=== PATIENT | male | born 1990 | race African-American/Black ===

== ENCOUNTER 2018-07-13 21:13 | Emergency (ER) | payer MEDICAID ==
[~2018-07-13] VITALS: Ht 170.2 cm; Wt 77.1 kg
[2018-07-13 21:18] VITALS: Ht 170.2 cm; Wt 77.1 kg
[2018-07-13 22:28] LABS: BASOPHIL % 0.8 % (0-2); RED CELL DISTRIBUTION WIDTH 14.5 % (11.5-14.5)
[2018-07-13 22:32] LABS: PLATELET COUNT 549 x10^3mcL (130-400)
[2018-07-13 22:36] LABS: CALCIUM 9.4 mg/dL (8.5-10.1); CARBON DIOXIDE 22.8 mmol/L (21-32); CHLORIDE SERUM 99 mmol/L (98-107); CREATININE SERUM 0.8 mg/dL (0.7-1.3); GFR1 > 60 mL/min; GLUCOSE SERUM 92 mg/dL (74-106); POTASSIUM SERUM 3.2 mmol/L (3.5-5.1); SODIUM SERUM 138 mmol/L (136-145)
[2018-07-13 22:41] LABS: ALBUMIN 3.6 g/dL (3.4-5.0); ALKALINE PHOSPHATASE 76 U/L (46-116); ALT/SGPT 91 U/L (16-63); AST/SGOT 66 U/L (15-37); BILIRUBIN TOTAL 0.61 mg/dL (0.20-1.00); TOTAL PROTEIN, SERUM 8.3 g/dL (6.4-8.2)
[2018-07-14 02:39] VITALS: BP 129/73
== END 2018-07-14 02:40 | disposition home or self-care (01) ==
LOC: ED 21:13 → EDBD 21:13 → ED 07-14 02:40
PROVIDERS: Emergency Medicine
DX: F10.239 Alcohol dependence with withdrawal, unspecified (principal); R56.9 Unspecified convulsions; M79.672 Pain in left foot; Y90.0 Blood alcohol level of less than 20 mg/100 ml
CPT/HCPCS: G0480; J2060; J3411; J3475; J3490; J7030

== ENCOUNTER 2018-10-21 19:00 | Inpatient (IN) | payer OTHER ==
[~2018-10-21] VITALS: Ht 170.2 cm; Wt 71.7 kg
--- NOTE | 2018-10-21 19:57 | NUR ---
PT BIBA, PER MEDIC FAMILY CALLED 911 BECAUSE PT WAS ALTERED. FAMILY REPORTED TO MEDIC THAT PT WAS IN ALCOHOL WITHDRAWL, LAST TIME PT HAD ALCOHOL WAS TODAY OF UNKNOWN AMOUNT. PT IS AAOX3 TO PT UNAWARE OF SITAUTION. PT HAS INTERMITTEN CONFUSION. PT SPEAKING LOW VOLUME AND INCOMPRENSIBLE. PER MEDIC FAMILY WAS ON THE WAY.
[2018-10-21 20:01] LABS: BASOPHIL % 0.3 % (0-2)
[2018-10-21 20:07] LABS: PLATELET COUNT 92 x10^3mcL (130-400); RED CELL DISTRIBUTION WIDTH 17.5 % (11.5-14.5)
[2018-10-21 20:22] LABS: CALCIUM 10.4 mg/dL (8.5-10.1); CARBON DIOXIDE 12.5 mmol/L (21-32); CHLORIDE SERUM 94 mmol/L (98-107); CREATININE SERUM 0.5 mg/dL (0.7-1.3); GFR1 > 60 mL/min; GLUCOSE SERUM 64 mg/dL (74-106); POTASSIUM SERUM 3.1 mmol/L (3.5-5.1); SODIUM SERUM 136 mmol/L (136-145)
[2018-10-21 20:27] LABS: ALBUMIN 4.3 g/dL (3.4-5.0); ALKALINE PHOSPHATASE 99 U/L (46-116); ALT/SGPT 95 U/L (16-63); AST/SGOT 321 U/L (15-37); BILIRUBIN TOTAL 2.86 mg/dL (0.20-1.00)
[2018-10-21 20:33] LABS: CHOLESTEROL 235 mg/dL (<200); TOTAL PROTEIN, SERUM 8.9 g/dL (6.4-8.2)
[2018-10-21 20:38] LABS: AMPHETAMINE QUAL UR NONE DETECTED (See below)
--- NOTE | 2018-10-21 20:40 | NUR ---
PT SITTING UP IN BED, SLEEPING. PT EASILY AROUSABLE. PT URINATED ON HIMSELF. PT PROVIDED WITH PERICARE AND LINEN CHANGE. PT STATES "I WAS WET, THIS FEELS BETTER". PT AWARE OF NAME, BIRTHDATE AND STATES HES AWARE HES "AT [facility]". BUT THEN STATES "DONT LET THEM STEAL FROM ME" WHEN ASKED WHO PT WAS REFERRING TO HE STATED "THEIR IN MY KITCHEN." PT REORIENTED TO PLACE AND SITUATION.
--- NOTE | 2018-10-21 22:13 | NUR ---
PT SITTING UP IN BED, PT REPORTS HAVING TO URINATE. URINAL PROVIDED. PT STATES "I FEEL SO MUCH BETTER, I THINK I CAN GO OUTSIDE NOW". PT NOTED TO BE TALKING TO HIMSELF AND STATING "HELLO, WHO IS PICKING ME UP? WHAT ABOUT JAVEIR" PT ASKED IF HE KNEW WHERE HE WAS HE STATED "[facility]". WHEN ASKED WHO HE WAS TALKING TO PT STATED "[facility]".
--- NOTE | 2018-10-21 23:00 | NUR ---
PT TAKEN TO CT VIA RALISSA.
--- NOTE | 2018-10-21 23:07 | NUR ---
PT RETURNED FROM CT WITH NO S/S OF DISTRESS.
--- NOTE | 2018-10-21 23:25 | NUR ---
REPORT GIVEN TO ALESSANDRO LAUREN TO ASSUME CARE OF PT.
--- NOTE | 2018-10-21 23:29 | NUR ---
RECEIVED PT FROM ED VIA GUERNEY, CAME IN DUE TO ALCOHOL WITHDRAWAL. PT IS AWAKE, CONFUSED, DISORIENTED. ABLE TO FOLLOW SOME SIMPLE COMMANDS. SPEECH IS SLOW. NO SOB NOTED, LUNG SOUNDS CTA. NO S/S OF CHEST PAIN/PRESSURE, SINUS TACHYCARDIA ON THE MONITOR, HR AT 113. NO S/S OF ABDOMINAL DISCOMFORT. NOTED PT HAS A SCAB ON THE LEFT KNEE. PT BECOMES COMBATIVE WHEN TOUCHED AND ATTEMPTS TO GET OUT OF BED. PT IS HALLUCINATING. PT KEPT ON VERBALIZING FOR A MEDICATION TECH. PT'S FATHER AT BEDSIDE. PADDED SIDE RAILS UPX2. CALL LIGHT ON REACH. HOB ELEVATED AT 30 DEG. PT REFUSES FULL SKIN ASSESSMENT. PT IS UNCOOPERATIVE TO CARE. PT'S FATHER AT BEDSIDE AND STATED THAT PT WAS RECENTLY IN [place] FOR ALCOHOLISM. PRIMARY NURSE RADHA AT BEDSIDE FOR CONTINUITY OF CARE
[2018-10-21 23:33] LABS: MAGNESIUM 1.8 mg/dL (1.8-2.4); PHOSPHOROUS 1.5 mg/dL (2.5-4.9)
[2018-10-21 23:36] LABS: CHOLESTEROL/HDL RATIO 2.8
[2018-10-21 23:58] VITALS: BP 151/117
[2018-10-22 00:08] VITALS: Ht 170.2 cm; Wt 71.7 kg
--- NOTE | 2018-10-22 00:43 | NUR ---
DR HENNESSY MAD AWARE ABOUT PATIENT PHOS LEVEL BEING 1.5 STATED WILL ORDER A PHOS LEVEL AND AM AND WILL DECIDE THEN. ALSO INFORMED MD THAT PATIENT BS WAS 64 ON ADMIT IF SHE WANTS TO ORDER FLUIDS WITH DEXTROSE OR ORDER ACCU CHECKS TO MONITOR LEVEL AND SHE STATED WE WILL CHECK. WILL CONTINUE TO FOLLOW.
--- NOTE | 2018-10-22 01:21 | NUR ---
PT RESTING AT THIS TIME,PT INCHORENTLY RUMBLE AND TRY TO GET OOB,STARTED THE BANANA BAG ON THE PATIENT,FOLIC ACID 1 MG IV GIVEN,THIAMINE 100MG IM GIVEN ORDER TO THE LT HIGH,MVI 10 ML ADDED TO THE N/S FLUID 1000ML AND INFUSING AT 250 ML ORDER.
--- NOTE | 2018-10-22 01:31 | NUR ---
PT STILL RUMBLE SNO SLEEPING WAS GIVEN 2 MG ATIVAN IV GIVEN ORDER AND WILL CONTINUE TO MONITOR.
--- NOTE | 2018-10-22 02:23 | NUR ---
SEEN ORDER FOR K PHOS FOR PHOS LEVEL OF 1.5.WILL F/U WITH ASSIGNED NURSE RADHA.
[2018-10-22 06:02] VITALS: BP 143/101
--- NOTE | 2018-10-22 06:36 | NUR ---
PT HAD A RESTING ON AND OFF,IV INFUSING WELL WITH THE SITE PATENT AND INTACT,KEPT CLEAN AND DRY TO TOUCH AT THIS TIME,
[2018-10-22 06:39] LABS: BILIRUBIN DIRECT 1.33 mg/dL (0.0-0.2); BILIRUBIN TOTAL 2.62 mg/dL (0.20-1.00); CALCIUM 8.5 mg/dL (8.5-10.1); CHLORIDE SERUM 101 mmol/L (98-107); CREATININE SERUM 0.6 mg/dL (0.7-1.3); GFR1 > 60 mL/min; GLUCOSE SERUM 60 mg/dL (74-106); POTASSIUM SERUM 3.4 mmol/L (3.5-5.1); SODIUM SERUM 139 mmol/L (136-145)
[2018-10-22 06:40] LABS: AMYLASE 233 U/L (25-115)
[2018-10-22 06:42] LABS: CARBON DIOXIDE 9.6 mmol/L (21-32)
--- NOTE | 2018-10-22 06:45 | NUR ---
MADE DR HENNESSY AWARE OF PATIENT BP 143/101,CO2 9.6 AND K+ 3.4,PT STILL CONFUSED AND TRYING TO GET OOB,MADE COMFORTABLE IN BED AND WILL CONTINUE TO MONITOR.
[2018-10-22 06:49] LABS: BASOPHIL % 0.6 % (0-2)
[2018-10-22 07:14] LABS: PLATELET COUNT 91 x10^3mcL (130-400); RED CELL DISTRIBUTION WIDTH 17.7 % (11.5-14.5)
[2018-10-22 07:30] LABS: LIPASE 3693 IU/L (73-393)
--- NOTE | 2018-10-22 07:35 | NUR ---
PT LETHARGIC, RESPONDS TO TACTILE STIMULI, FOLLOWS COMMANDS AND OPENS EYES SPONT. SPEECH GARBLED. NO FACIAL DROOP. MILD TREMORS NOTED TO HANDS. RA. CHEST EXPANSION SYMM. NO COUGH NOTED. NO N/V/D. SITTER AT BEDSIDE. RIGHT HAND PERIPHERAL IV SITE WNL AND DRESSING CDI. NS INFUSING @ 100 ML/HR. NO S/SX OF ACUTE DISTRESS. WILL CONTINUE TO MONITOR.
--- NOTE | 2018-10-22 08:09 | NUR ---
PT ATTEMPTING TO BITE AT IV SITES. EDUCATED NOT TO. AUTOMOTIVE PROFESSIONAL AT BEDSIDE. WILL ATTEMPT ABDOMINAL EXAM.
[2018-10-22 08:25] VITALS: BP 138/83
--- NOTE | 2018-10-22 08:32 | NUR ---
US ABDOMEN COMPLETE
--- NOTE | 2018-10-22 10:04 | NUR ---
PT ABLE TO SWALLOW SMALLER PILLOWS. PT THREW UP POTASSIUM PILLS. DR. BENSON MADE AWARE
--- NOTE | 2018-10-22 10:09 | NUR ---
PT'S HANDS NOTED TO HAVE HAND TREMORS, AAOX1. SPEECH SLURRED. WILL MEDICATE PER EMAR
--- NOTE | 2018-10-22 10:53 | NUR ---
RIGHT HAND PERIPHERAL IV CATHETER NOTED TO BE OUT. TIP INTACT. SITE WNL. RAC 22G PERIPHERAL IV INITIATED. FLUSHED WITH 10 ML NS. NO S/SX OF INFILTRATION
[2018-10-22 13:30] VITALS: BP 130/99
--- NOTE | 2018-10-22 15:28 | NUR ---
RECEIVED PT IN BED. RESP EQUAL AND UNLABORED. PT IS AROUSABLE TO COMMAND AND TOUCH, DISORIENTED AND CONFUSED. SZ PRECAUTIONS IN PLACE. WILL CONTINUE TO MONITOR
[2018-10-22 16:25] VITALS: BP 135/97
[2018-10-22 17:22] LABS: BASOPHIL % 0.6 % (0-2)
[2018-10-22 17:23] LABS: CALCIUM 8.3 mg/dL (8.5-10.1); CARBON DIOXIDE 10.2 mmol/L (21-32); CHLORIDE SERUM 100 mmol/L (98-107); CREATININE SERUM 0.6 mg/dL (0.7-1.3); GFR1 > 60 mL/min; GLUCOSE SERUM 73 mg/dL (74-106); POTASSIUM SERUM 3.4 mmol/L (3.5-5.1); SODIUM SERUM 134 mmol/L (136-145)
[2018-10-22 17:28] LABS: PLATELET COUNT 109 x10^3mcL (130-400); RED CELL DISTRIBUTION WIDTH 17.7 % (11.5-14.5)
--- NOTE | 2018-10-22 18:15 | NUR ---
CALLED AND SPOKE TO (RESIDENT) ASSIGNED TO THIS PT AND MADE HIM AWARE OF CO2-10.2, NEW ORDER RECEIVED, PLS SEE CPOE, IVF OF D5 1/2NS WITH SODIUM BICARBONATE. SURU RN ASSIGNED TO THIS PT MADE AWARE OF ABOVE. WILL ENDORSED TO NEXT CHARGE NURSE.
--- NOTE | 2018-10-22 18:38 | NUR ---
PT IN BED WITH EYES CLOSED. RESP EQUAL AND UNLABORED, NO DISTRESS NOTED. WILL ENDOSE TO ONCOMING SHIFT
--- NOTE | 2018-10-22 19:50 | NUR ---
TELE#26 ST, [id number], RHYTHM REGULAR.
--- NOTE | 2018-10-22 19:50 | NUR ---
PATIENT RECEIVED IN BED WITH EYES CLOSED, BRIEFLY AWAKEN VERBALLY WHEN NAME CALLED THEN GOES BACK TO SLEEP, MUMBLING INCOMPREHENSIBLE WORDS, SPEECH GARBLED, APPEARED DROWSY. BREATHING EVEN AND UNLABORED BS CLEAR DIMINISHED BASES, FOUND ON ROOM AIR SAT 99%. INCONTINENT OF URINE AND STOOL, KEPT CLEANED AND DRY AT ALL TIMES, PATIENT WITH SITTER AT BEDSIDE TO ASSIST WITH ADL'S AND FOR SAFETY. IV SITE TO RT AC PATENT AND INTACT, INSERTED ANOTHER TO LEFT FOREARM.PATIENT ABLE TO FOLLOW SIMPLE COMMAND. NO SZ ACTIVITY THIS TIME, PADDED RAILS IN PLACED, HOB AT SEMI FOWLERS POSITION. GENERALIZED WEAKNESS, NEED MAX ASSIST WITH ADL'S, NEEDS ANTICIPATED. SAFETY/FALL/SZ PRECAUTIONS MAINTAINED AND OBSERVED. WILL CONTINUE TO MONITOR.
[2018-10-22 20:00] VITALS: BP 136/82
--- NOTE | 2018-10-22 20:50 | NUR ---
NEW IVF ORDER OF D51/2NS WITH 1 AMP BICARB HANGED THIS TIME, REGULATED ON A PUMP AT A RATE OF 100ML/HR.
--- NOTE | 2018-10-22 23:21 | NUR ---
MORE ALERT AND FOLLOWING DIRECTIONS,LIBRIUM ORALL PER ROUTINE ORDERED ADMINISTERED BY ANOTHER NURSE THIS TIME, PATIENT WAS INFORMED ABOUT MEDS ACTIONS AND PURPOSE PRIOR. PLACED HOB UP, TOOK PILLS WELL NO DIFF SWALLOWING NOTED. NO COMPLAINTS MADE. COOPERATIVE AND CALM. SFETY MAINTAINED. WILL CONTINUE TO MONITOR.
--- NOTE | 2018-10-23 00:26 | NUR ---
PATIENT AWAKE, TRYING TO GET OOB AND ATTEMPTING TO PULL IV HEPLOCK RT AC AND IV TO LEFT FOREARM, CONFUSED AND DISORIENTED TO PLACED AND CONFUSED ABOUT PURPOSE OF ADMISSION TO THE HOSP. RE-ORIENTED. WILL MEDICATE PRN.
--- NOTE | 2018-10-23 02:35 | NUR ---
PATIENT AWAKE, BUT CALM THIS TIME. WILL CONITNUE TO MONITOR.
[2018-10-23 05:25] VITALS: BP 132/88
--- NOTE | 2018-10-23 05:35 | NUR ---
SCHEDULED MEDS ADMINISTERED ORALLY, PATIENT AWAKEN AND FOLLOWS DIRECTIONS, INFORMED ABOUT PURPOSE AND ACTION OF MEDS PRIOR. PLACED IN A SITTING POSITION. TOOK PILLS WELL.
--- NOTE | 2018-10-23 06:23 | NUR ---
PATIENT BEEN SLEEPING, DROWSY BUT AROUSABLE VERBALLY HAD X1 EPISODE OF AGITATION AND ANXIETY, REMAINED CONFUSED AND DISORIENTED, RE-ORIENTED. IV SITE TO LEFT AC PATENT AND INTACT, HEPLOCK TO RAC PATENT AND INTACT. WAS INCONITNENT OF UA AND STOOL DURING THE SHIFT, KEPT CLEAN AND DRY.SEMIFOWLERS POSITION. NO SEIZURE ACTIVITY ENCOUNTERED. SITTER AT BEDSIDE DURING THE ENTIRE SHIFT FOR PATIENT SAFETY AND ASSISTANCE WITH ADL'S. WILL ENDORSE CONTINUITY OF CARE TO INCOMING NURSE.
[2018-10-23 06:42] LABS: CALCIUM 9.3 mg/dL (8.5-10.1); CARBON DIOXIDE 14.3 mmol/L (21-32); CHLORIDE SERUM 99 mmol/L (98-107); CREATININE SERUM 0.6 mg/dL (0.7-1.3); GFR1 > 60 mL/min; GLUCOSE SERUM 81 mg/dL (74-106); MAGNESIUM 1.9 mg/dL (1.8-2.4); PHOSPHOROUS 1.4 mg/dL (2.5-4.9); SODIUM SERUM 135 mmol/L (136-145)
--- NOTE | 2018-10-23 06:48 | NUR ---
LAB CLALED RE-POTAASIUM LEVEL OF 2.8,PRIMARY RN MADE AWARE OF RESULT.
[2018-10-23 06:49] LABS: PLATELET COUNT 140 x10^3mcL (130-400); POTASSIUM SERUM 2.8 mmol/L (3.5-5.1)
--- NOTE | 2018-10-23 07:10 | NUR ---
RECEIVED PATIENT FROM TEST ENGINEER NURSE. PATIENT IS RESTING WITH BOTH EYES CLOSED, AROUSABLE. TELE#26, ST, HR 102. ON ROOM AIR, BREATHING E/U. INCONTINENT, CLEAN AND DRY AT THIS TIME. IV NOTED TO LFA, IVF INFUSING WELL ORDERED, NO S/S ERYTHEMA. CALL LIGHT WITHIN EASY REACH. SITTER AT BEDSIDE FOR SAFETY. WILL CONTINUE TO MONITOR.
--- NOTE | 2018-10-23 08:13 | NUR ---
CALLED AND SPOKE TO (RESIDENT)ASSIGNED TO THIS PT AND MADE AWARE OF K-2.8 AND PHOS-1.4, WILL AWAIT FOR FURTHER ORDER. POWER RN ASSIGNED TO THIS PT MADE AWARE OF ABOVE.
[2018-10-23 09:31] VITALS: BP 135/84
--- NOTE | 2018-10-23 10:32 | NUR ---
NEURO CHECK: PATIENT IS ABLE TO STATE CORRECT NAME AND DATE OF . ORIENTED TO PLACE. APPEARS DROWSY AND LETHARGIC. [facility]CS: 14. FOLLOWS SIMPLE COMMANDS. QUIET SLOW GARBLED SPEECH. DOES NOT ANSWER ADDITIONAL ORIENTATION QUESTIONS APPROPRIATELY. PUPILS ARE BRISK 3MM BILATERALLY. EQUAL 2+ STRENGTH TO BLE AND BUE. MILD TREMORS NOTED TO BUE. UNABLE TO AMBULATE DUE TO LETHARGY. DOES NOT MAKE DIRECT EYE CONTACT. IMPAIRED RECENT MEMORY: UNABLE TO RECALL CURRENT CONVERSATION. DENIES HALLUCINATIONS.
--- NOTE | 2018-10-23 12:05 | NUR ---
PATIENT RESTING IN BED WITH BOTH EYES CLOSED. CALM AT THIS TIME. READING ST HR 110 ON TELE#26. IVF INFUSING WELL TO LFA, NO S/S ERYTHEMA AT SITE. SEIZURE AND ASPIRATION PREC REMAIN IN PLACE. WILL CONTINUE TO MONITOR.
[2018-10-23 13:58] VITALS: BP 134/95
--- NOTE | 2018-10-23 15:30 | NUR ---
PATIENT CARE ENDORSED TO ALESSANDRO SAXENA.
--- NOTE | 2018-10-23 15:47 | NUR ---
RECEIVED PATIENT FROM POWER RN, PATIENT SLEEPING AT THIS TIME. NO DISTRESS NOTED. IV TO LAC INTACT AND INFUSING WELL. CALL LIGHT WITHIN REACH. BED IN LOWEST POSITION. BED ALARM IN PLACE.
[2018-10-23 16:29] VITALS: BP 141/89
--- NOTE | 2018-10-23 16:30 | NUR ---
FOUND PATIENT LAYIN SUPINE IN BEDM EYES CLOSED, SNORINGM APPARENTLY ASLEEP. PATIENT ROUSABLE BY PHYSICAL STIMULI AND ORIENTED TO SELF. WANTED TO SLEEP. BS CHECKEDM RESULT 103. CALL LIGHT IS WITHIN REACH
--- NOTE | 2018-10-23 18:27 | NUR ---
ADMINISTERED MAINTAINCE FLUIDS PER ORDER. PATIENT SITTING UP EATING. A/OX4, SLOW TO RESPOND, BUT ALERT. PATIENT HAS NO COMPLAINTS AT THIS TIME, CALL LIGHT IS WITHIN REACH
--- NOTE | 2018-10-23 20:00 | NUR ---
RECEIVED PT IN BED, RESTING QUIETLY. AWAKE AT THIS TIME, ABLE TO FOLLOW SIMPLE COMMANDS, OTHERWISE CONFUSED WITH GARBLED SPEECH. ON SEIZURE PREC. NO ACTIVITY NOTED AT THIS TIME. VISITED BY PARENTS, QUESTIONS AND CONCERNS ADDRESSED. ST ON THE MONITOR, DENIES CP OR ANY DISCOMFORT. AFEBRILE AND VITAL SIGNS STABLE. IVF, D51/2NS WITH 1AMP. BICARB. AT 100ML/HR, INTACT AND INFUSING VIA LFA, SITE CLEAR. SITTER AT THE BEDSIDE FOR SAFETY AND CLOSE OBSERVATION. WILL CONTINUE TO MONITOR.
[2018-10-23 20:42] VITALS: BP 133/87
--- NOTE | 2018-10-24 01:11 | NUR ---
NO COMPLAINTS NOTED AT THIS TIME. EYES CLOSED, APPEARS ASLEEP, EASILY AROUSABLE.RESP. EVEN AND UNLABORED. NO ACUTE DISTRESS NOTED. WILL CONTINUE TO MONITOR.
[2018-10-24 05:38] VITALS: BP 132/96
--- NOTE | 2018-10-24 06:08 | NUR ---
AFEBRILE AND VITAL SIGNS STABLE. SLEPT WELL. NO COMPLAINTS NOTED. DUE MEDS GIVEN ORDERED, SIRENA. WELL. IVF INTACT AND INFUSING WELL, SITE CLEAR. RESP. EVEN AND UNLABORED, NO ACUTE DISTRESS NOTED. NO SEIZURE ACTIVITY NOTED. NO AGITATION NOTED. SPEECH CLEAR , BUT SLOW. FOLLOWS COMMANDS. CALL LIGHT WITHIN REACH. WILL CONTINUE TO MONITOR.
[2018-10-24 06:36] LABS: PLATELET COUNT 176 x10^3mcL (130-400)
[2018-10-24 07:07] LABS: CALCIUM 9.9 mg/dL (8.5-10.1); CARBON DIOXIDE 22.3 mmol/L (21-32); CHLORIDE SERUM 106 mmol/L (98-107); CREATININE SERUM 0.5 mg/dL (0.7-1.3); GFR1 > 60 mL/min; GLUCOSE SERUM 98 mg/dL (74-106); MAGNESIUM 1.6 mg/dL (1.8-2.4); PHOSPHOROUS 1.9 mg/dL (2.5-4.9); SODIUM SERUM 143 mmol/L (136-145)
[2018-10-24 07:10] LABS: POTASSIUM SERUM 2.5 mmol/L (3.5-5.1)
--- NOTE | 2018-10-24 08:00 | NUR ---
RECEIVED PATIENT DROWSY BUT ABLE TO BE ARROUSED. [id number] AHS SOME TREMORS NOTED AND HAS BEEN ON ETOH PROTOCAL AND IS CALM AND COOPERATIVE AT THIS TIME. APTEITN AHS DIMISHED BREATH SOUNDS AND PULSES PALPABLE TO ALL EXTREMITIES. IV INTACT AND PATIENT WITH SITTER AT [facility] AND HAS BEEN MONITORED FOR DETOX AND AGITATION. PATIENT HAS BEEN ON BEDREST AND HAS NOT BEEN INCONTINENT SO FAR THIS SHIFT. PATIENT ENCOURAGED TO EAT AND DRINK. GAVE ALL MEDICATIONS OREERED INCLUDING POTASSIUM AND IV AND PO. HE ALSO RECEIVED MAGNESIUM PO. VITALS AT THIS TIME AT 99.2, 100, 18, 132/96, 97% ON ROOM AIR. PATIEN SI SINUS TACH AND DENIES PAIN AT THIS TIME.
[2018-10-24 08:10] VITALS: BP 135/91
[2018-10-24 08:25] LABS: RED CELL DISTRIBUTION WIDTH 17.8 % (11.5-14.5)
[2018-10-24 11:14] LABS: BAND NEUTROPHIL 3 % (0-10); BASOPHIL 0 % (0-2); MONOCYTE 25 % (0-7); SEGMENTED NEUTROPHILS 52 % (37-75)
[2018-10-24 11:15] LABS: PLATELET MORPHOLOGY LARGE PLATELET SEEN; rbc morphology (normal/abnorm) ABNORMAL (NORMAL); target cell (codocyte) 1+; tear drop cell (dacryocyte) 1+
--- NOTE | 2018-10-24 12:57 | NUR ---
K RIDER INSTILLED AND PATIENT ENCOURAGE DIET TOLERATED. SITTER AT BESIDE. NO ACUTE DISTRESS AT THIS TIME.
[2018-10-24 13:01] VITALS: BP 128/89
--- NOTE | 2018-10-24 15:10 | NUR ---
THE K RIDER COMPLETED AND TOLERATED WELL. NO CONFUSION AT THIS TIME. WILL CONTINUE TO MONITOR INDICATED. PATIENT HAS SOME FINE TREMORS TO GLORIA HANDS NOTED.
[2018-10-24 17:06] VITALS: BP 142/97
--- NOTE | 2018-10-24 18:11 | NUR ---
NO SEIZURE ACTIVITY AT THIS TIME. MONITORING FOR UNSTEADY GATE.
[2018-10-24 19:29] VITALS: BP 146/89
--- NOTE | 2018-10-24 19:45 | NUR ---
PT RECIEVED AWAKE ALERT AND ORIENTED TO PLACE,PT ASKING FOR HIS PHONE,IV INFUSING WELL WITH THE SITE PATENT AND INTACT,HOB,KEPT CLEAN AND DRY TO TOUCH,SIDE RAILS ALL PADDED,BED IN THE LOW POSITION AND LOCKED,MADE COMFORTABLE IN BED,CALL LIGHT MADE CLOSE TO THE PATIENT AND WILL CONTINUE TO MONITOR.
[2018-10-25 06:00] VITALS: BP 146/92
--- NOTE | 2018-10-25 06:17 | NUR ---
PT HAD A RESTING NIGHT NOC GUNNAR AT THIS TIME,WILL CONTINUE TO MONITRO.
[2018-10-25 06:30] LABS: PLATELET COUNT 195 x10^3mcL (130-400)
[2018-10-25 06:37] LABS: CALCIUM 10.1 mg/dL (8.5-10.1); CARBON DIOXIDE 24.4 mmol/L (21-32); CHLORIDE SERUM 107 mmol/L (98-107); CREATININE SERUM 0.5 mg/dL (0.7-1.3); GFR1 > 60 mL/min; GLUCOSE SERUM 86 mg/dL (74-106); MAGNESIUM 1.4 mg/dL (1.8-2.4); PHOSPHOROUS 2.3 mg/dL (2.5-4.9); SODIUM SERUM 141 mmol/L (136-145)
[2018-10-25 06:47] LABS: POTASSIUM SERUM 2.9 mmol/L (3.5-5.1)
[2018-10-25 06:50] LABS: RED CELL DISTRIBUTION WIDTH 18.5 % (11.5-14.5)
[2018-10-25 07:10] LABS: LIPASE 1856 IU/L (73-393)
--- NOTE | 2018-10-25 07:25 | NUR ---
reported the k= level of 2.9 to the am nurse to follow up.
--- NOTE | 2018-10-25 07:35 | NUR ---
RECEIVED BEDSIDE REPORT. PATIENT RESTING IN BED COMFORTBALY A/O X4, ABLE TO MAKE NEEDS KNOWN AND FOLLOW COMMANDS. TELE # [address], DENIES CHEST PAIN, BREATHING EVEN AND UNLABBORED, DENIES SOB, NO DISTRESS NOTED. DENIES N/V OR ABD PAIN. VOIDS FREELY USING URINAL AT BEDSIDE. IV TO LFA INTACT INFUSING NS AT 70 ML/HR FREE FROM REDNESS AND INFILTRATION. PATIENT IS CALM WITH CARE. INSTRUCTED TO CALL FOR ASSISTANCE IF NEEDED. SAFETY PRECAUTIONS MAINTAINED. WILL MONITOR.
--- NOTE | 2018-10-25 07:50 | NUR ---
DIANA BARRIENTOS AT BEDSIDE TO SPEAK WITH PATIENT REGARDING POC: PATIENT WILL BE SEEN BY PHYSICAL THERAPY TODAY. ALL QUESTIONS AND CONCERNS ADDRESSED. SAFETY PRECAUTIONS MAINTAINED.
[2018-10-25 09:10] VITALS: BP 142/98
--- NOTE | 2018-10-25 10:10 | NUR ---
PATIENT RESTING IN BED WITH EYES CLOSED, BREATHING EVEN AND UNLABBORED, NO DISTRESS NOTED. SAFETY PRECAUTIONS MAINTAINED. WILL MONITOR.
--- NOTE | 2018-10-25 10:20 | NUR ---
TERRY BARRIENTOS MADE AWARE OF PHOS 2.3, NO NEW ORDERS RECEIVED.
[2018-10-25 11:32] LABS: ATYPICAL LYMPH 1 %; BAND NEUTROPHIL 0 % (0-10); BASOPHIL 1 % (0-2); MONOCYTE 22 % (0-7); SEGMENTED NEUTROPHILS 65 % (37-75)
[2018-10-25 11:33] LABS: PLATELET MORPHOLOGY PLATELETS DECREASED; rbc morphology (normal/abnorm) ABNORMAL (NORMAL)
--- NOTE | 2018-10-25 13:00 | NUR ---
PATIENT SITTING UP IN BED EATING LUNCH, TOLERATING WELL, NO DISTRESS NOTED. ALL NEEDS ATTENDED TO, SAFETY PRECAUTIONS MAINTAINED. WILL MONITOR.
--- NOTE | 2018-10-25 13:14 | NUR ---
Initial Nutrition Assessment: 216T/A SAMMIE MELO IA HR Dx: ETOH withdrawal PMHx: Seizure. PSHx: unknown Labs: K 2.9L, BUN 4.0L, PHOS 2.3L, Lipase 1856H, Ammonia 33H Meds: Ativan, Colace, D 10%, Folic acid, magnesium sulfate, theragran-M, Vitamin B-1, zofran Diet: Regular PO Intake: breakfast 100% Ht: 170.18 cm (67") Wt: 71.6 kg (157#) BMI: 24.7 kg/m2 Bed scale: 157# IBW: 148# (67 kg) %IBW: 106 UBW: 170# Age: 28/M Food Allergies: NKFA Skin: intact Hieu: 17 Edema: none GI: Last BM: 10/23 Per H&P, Pt is a 28yo male with PMH of seizure disorder who was brought to the ER by ambulance after family called 911 for evaluation of altered mental status. Per EMS, patient's family stated they had been giving him alcohol to keep him from withdrawing. Per ER, patient was at [facility] 2 days ago with the same symptoms of alcohol intoxication and eventually discharged home. RDN Visit (10/25): Patient was lethargic but was responding. Patient said that his appetite has improved and he ate all of his breakfast this morning but was complaining that it was small indicating that pt has good appetite. Patient reported to have lost 20# in~ 2 months. FNS received consult for "Alcoholic, malnutrition, please advise on diet changes, pt not eating solids" on 10/24. Problem with: N/V/D/C: no Problems with: Chewing/Swallowing: no Current appetite: good Recent wt change: 20# x ~2 months %wt change: 7.6% (significant) Vitamin/Supplement use: none Special diet at home: Regular, didn't eat as much Physical activity: walking Nutrition education given: Healthy eating guidelines including label- reading, consumption of fruits and vegetables, harmful effects of red meats were discussed. All diet related questions were answered. Patient verbalized understanding. Food-drug interactions: Colace- high fiber w/1200-1500ml fluids, Ativan- limit caffeine to <400-500 mg/day Education given: yes Estimated Nutritional Needs Based on actual body weight 71.6 kg Energy: 3180-8661 kcal/d (25-30 kcal/kg) Protein: 71.6-86 g/d (1.0-1.2 g/kg)- preserve LBM Fluid: 7694-3758 ml/d (1 ml/kcal) or per doctor Nutrition Diagnosis 1. Malnutrition related to poor PO as evidenced by self-reported unintentional weight loss of 20# x ~ 2 months. Intervention 1. Recommend continuing regular diet. 2. Recommend Ensure Enlive BID Monitor/Evaluate Goal: PO intake at least 75% of estimated needs Monitor: PO intake, Labs, GI function F/U in 7 days as low risk 11/01
--- NOTE | 2018-10-25 13:15 | NUR ---
1. Recommend continuing regular diet. 2. Recommend Ensure Enlive BID
--- NOTE | 2018-10-25 16:06 | NUR ---
PATIENT SITTING UP IN BED WATCHING TELEVISION, NO DISTRESS NOTED. ALL NEEDS ATTENDED TO, SAFETY PRECAUTIONS MAINTAINED. WILL MONITOR.
[2018-10-25 18:04] VITALS: BP 147/106
--- NOTE | 2018-10-25 19:25 | NUR ---
REPORT GIVEN TO KADEEM FRANCOIS, ALL QUESTIONS AND CONCERNS ADDRESSED, ALL CARES ENDORSED.
--- NOTE | 2018-10-25 19:40 | NUR ---
RECEIVED REPORT FROM DAY SHIFT RN. PT RESTING IN BED. AA&O X4. NO SOB ON ROOM AIR. NO C/O PAIN. NO DISTRESS NOTED. IV TO LFA, NS INFUSING. SAFETY MEASURES IN PLACE. INSTRUCTED PT TO USE THE CALL LIGHT FOR ASSISTANCE. CALL LIGHT WITHIN REACH.
[2018-10-25 21:10] VITALS: BP 141/97
[2018-10-26 05:56] VITALS: BP 147/97
[2018-10-26 06:32] LABS: PLATELET COUNT 242 x10^3mcL (130-400)
[2018-10-26 06:38] LABS: CALCIUM 10.5 mg/dL (8.5-10.1); CARBON DIOXIDE 25.8 mmol/L (21-32); CHLORIDE SERUM 103 mmol/L (98-107); CREATININE SERUM 0.5 mg/dL (0.7-1.3); GFR1 > 60 mL/min; GLUCOSE SERUM 81 mg/dL (74-106); MAGNESIUM 1.7 mg/dL (1.8-2.4); POTASSIUM SERUM 3.7 mmol/L (3.5-5.1); SODIUM SERUM 141 mmol/L (136-145)
[2018-10-26 07:19] LABS: RED CELL DISTRIBUTION WIDTH 18.9 % (11.5-14.5)
--- NOTE | 2018-10-26 07:30 | NUR ---
PT SLEPT AT INTERVALS DURING SHIFT. NO SOB ON ROOM AIR. NO C/O PAIN. NO SEIZURES NOTED. SAFETY MEASURES MAINTAINED. CALL LIGHT WITHIN REACH. ENDORSED CONTINUITY OF CARE TO DAY SHIFT RN.
--- NOTE | 2018-10-26 08:10 | NUR ---
INFORMED HEAD COACH THAT PATIENT MAG LEVEL WAS 1.7 AND A NEW ORDER HAD BEEN VERFIED FOR MAGNESIUM PO, PATIENT ALREADY HAD A SCHEDULED ORDER FOR MAGNESIUM IV. HEAD COACH STATED TO ADMINISTER BOTH PER ORDER.
[2018-10-26 08:32] VITALS: BP 157/100
[2018-10-26] MEDS ORDERED: DULOXETINE HYDR30 MG PO (08:46)
--- NOTE | 2018-10-26 09:29 | NUR ---
ADMINISTERED MEDICATIONS PER MAR. INFORMED PATIENT THAT HIS MOTHER HAD CALLED ASKING ABOUT HIM BUT I DID NOT RELEASE ANY INFORMATION OTHER THAN THAT HE WAS DOING OKAY. INFOMRED PATIENT OF HIS DISHCARGE ORDER, HE STATED HE TOLD WARM IN THAT HE DID NOT HAVE A RIDE UNTIL HIS FATHER IS OFF OF WORK AROUND 183. WILL INFORM CHARGE NURSE. PATIENT HAD NOT COMPLAINTS AT THIS TIME BUT WISHED TO SLEEP BEFORE HIS DISHCARGE. TOLD PATIENT TO USE CALL LIGHT, OR INFORM SITTER WHEN HE NEEDS TO USE THE RESTROOM, ENCOURAGING PATIENT TO AMBULATE TO RESTROOM TO BUILD STRENGTH
[2018-10-26 11:28] LABS: ATYPICAL LYMPH 3 %; BAND NEUTROPHIL 1 % (0-10); BASOPHIL 1 % (0-2); MONOCYTE 22 % (0-7); SEGMENTED NEUTROPHILS 55 % (37-75)
[2018-10-26 11:29] LABS: PLATELET MORPHOLOGY PLATELETS DECREASED; rbc morphology (normal/abnorm) ABNORMAL (NORMAL); target cell (codocyte) 1+
--- NOTE | 2018-10-26 12:08 | NUR ---
PATIENT LEFT SIDE LAYING WITH EYES CLOSED, APPARENTLY ASLEEP. ROUNSABLE TO VOICE. BLOOD SUGAR RESULT 112. NOT COMPLAINING OF PAIN AT THIS TIME. JUST WISHED TO CONTINUE SLEEPING
--- NOTE | 2018-10-26 16:00 | NUR ---
FOUND PATIENT SITTING UP IN BED WATCHING TV. PATIENT REPORTED THAT HE HAD A PT VISTI BUT REFUSED TO GET UP OUT OF BED STATING HE "WANTED TO SAVE THE LAST OF HIS STRENGTH TO CRAWL HOME" AND THAT HE "JUST WANTS TO GET HOME SO HE CAN GET STRONGER." REINFORCED TEACHING TO PATIENT THAT IN ORDER TO GET STRONGER PATIENT NEEDS TO GET OUT OF BED AND PERFORM PHYSICAL THERAPY. PATIENT IS STRONG ENOUGHT TO REPOSITION HIMSELF IN BED ABUT REFUSED TO SIT AT EDGE OF BED WITH LEGS OVER EDGE.
[2018-10-26 16:30] VITALS: BP 148/95
--- NOTE | 2018-10-26 17:19 | NUR ---
P.T. NOTES Pt SEEN ALERT ORIENTED x3, SPEECH CLEAR, NO C/O DIZZINESS OR SOB AT THIS TIME, NO C/O PAIN AT REST, REFUSED TO MOVE DUE TO ANTICIPATORY PAIN & APPREHENSION DUE TO PAIN, DECLINED OOB W/ P.T., STATES "WHAT's THE POINT? THEY ARE DISCHARGING ME TODAY, MY DAD IS PICKING ME UP", REPORTS HIS FATHER & FATHER's SIG. OTHER CAN ASSIST AT HOME, HAS FWW AT HOME; REPORTS H/O FALLS DUE TO KNEES BUCKLING; REVIEWED HEP, FALL PREVENTION, USE OF CALL LT FOR NURSE ASST, REINFORCE USE OF SPIROMETER; CALL BARRETT, PHONE, TABLE IN REACH; HEELS OFF LOADED, BED ALARM ON, NURSE SITTER IN ROOM; SIDERAIL PADS INTACT; ON ROOM AIR; APPRECIATIVE; FF UP TOMORROW IF NOT D/C'd. 10/25/18 PSYCH CONSULT:NOT MEET LPS HOLD CRITERIA, H/O ANXIETY, ALC USE D/O. PRECAUTIONS: SZ, PSYCHOSOCIAL FACTOR, FALL RISK
[2018-10-26 17:26] VITALS: BP 148/95
--- NOTE | 2018-10-26 18:47 | NUR ---
CALLED PATIENT FATHER TO FACILITATE DISCHARGE, COULD NOT LEAVE MESSAGE SO CONTACTED MOTHER TO MAKE SURE SOMEONE IS ABLE TO PCIK UP PATIENT.
--- NOTE | 2018-10-26 20:56 | NUR ---
PT'S FATHER AND STEPMOM ARE HERE TO LOCATION AND MEASUREMENT TECHNICIAN PT, DISCHARGE INSTRUCTION GIVEN BY ASHLEY DURING THE DAY SHIFT, PT'S FATHER AND STEPMOM WAS REFUSING TO TAKE PT HOME DUE TO SAYING PT WAS UNABLE TO AMBULATE AND NO ONE TO TAKE HIM TO RESTROOM DURING THE DAY SINCE BOTH OF THEM ARE WORKING, PT WAS ABLE TO AMBULATE FROM BED TO WHEELCHAIR FOR 5 STEPS WITHOUT ANY ASSISTANCE, PT IS AAO X 4 AND VERY VERABLLY RESPONSIVE, PT'S FATHER WAS INSISTING TO SEND PT TO [facility] FOR ALCOHOL WITHDRAWAL, INSTRUCTED PT'S FATHER THAT OVER [employer] HELPER ALREADY GAVE RESOURCE OF ALCOHOL WITHDRAWAL PROGRAM, PT STATED THAT HE IS FINE TO GO HOME AND HE WANTS TO GO HOME, PER PT THAT IT WAS THE STEPMOM REFUSED TO TAKE HIM HOME, PT DISCHARGED VIA WC WITH STABLE CONDITION AND WAS ABLE TO AMBULATE FROM WC TO THE CAR WITHOUT ANY INCIDENT, SIDE DOOR MAN-LAURA MADE AWARE OF ABOVE SITUATION, SPOKE WITH DR ULLOA, PER DR ULLOA THAT PT OKAY TO DISCHARGE HOME TONIGHT.
== END 2018-10-26 20:55 | disposition home or self-care (01) | DRG 52 ==
LOC: ED 19:00 → DU 22:37 → MU 10-26 10:04
PROVIDERS: General Practice; Specialist; ADMIT Internal Medicine
DX: G93.41 Metabolic encephalopathy (principal); E83.39 Other disorders of phosphorus metabolism; F10.239 Alcohol dependence with withdrawal, unspecified; E78.5 Hyperlipidemia, unspecified; E86.0 Dehydration; E87.6 Hypokalemia; F41.9 Anxiety disorder, unspecified; E83.42 Hypomagnesemia; Y90.0 Blood alcohol level of less than 20 mg/100 ml; G40.909 Epilepsy, unspecified, not intractable, without status epilepticus; R74.0 Nonspecific elevation of levels of transaminase and lactic acid dehydrogenase [LDH]; Z68.24 Body mass index [BMI] 24.0-24.9, adult; Z79.899 Other long term (current) drug therapy
CPT/HCPCS: 82962; G0378; G0480; J2060; J3411; J3475; J3480; J3490; J7030; J7042; Q0092